=== PATIENT | male | born 1960 | race African-American/Black ===

== ENCOUNTER 2021-10-01 12:52 | Inpatient (IN) | payer MEDICAID, OTHER ==
[~2021-10-01] VITALS: Ht 160 cm; Wt 64.9 kg
[2021-10-01 20:00] VITALS: BP 155/101
[2021-10-01] MEDS ORDERED: DEXTROSE 50% WATER 50ML SYRINGE IV PRN (22:15)
[2021-10-01] MEDS: AMLODIPINE 10MG TABLET PO SCH (22:40)
[2021-10-02] VITALS (7 sets, daily range): BP systolic 127–156; BP diastolic 78–100
[2021-10-02 07:20] LABS: BASOPHILS % 0.3 % (0.0-2.0); HEMATOCRIT. 34.7 % (42.0-52.0); HEMOGLOBIN. 11.4 g/dL (14.0-18.0); LYMPHOCYTES % 20.9 % (20.0-50.0); MEAN CORPUSCULAR HEMOGLOBIN 28.4 pg (28.0-32.0); MEAN PLATELET VOLUME 10.7 fl (7.4-10.4); MONOCYTES % 7.1 % (2.0-8.0); NEUTROPHILS % 69.7 % (40.0-76.0); PLATELET 153 x1000/uL (130-400); RED BLOOD CELL COUNT 4.03 mill/uL (4.7-6.1); RED CELL DISTRIBUTION WIDTH 14.5 % (11.6-14.6)
[2021-10-02] MEDS ORDERED: BLOOD SUGAR DIAGNOSTIC STRIP TEST SCH (07:20)
[2021-10-02 07:28] LABS: CHLORIDE 111 mEq/L (98-107)
[2021-10-02] MEDS ORDERED: INSULIN LISPRO 100 UNITS/ML SUBCUT SCH (07:50)
[2021-10-02] MEDS: AMLODIPINE 10MG TABLET PO SCH (08:54)
[2021-10-02] MEDS ORDERED: IPRATROPIUM/ALBUTEROL 0.5-3(2.5)MG/3ML NEB HHN PRN (12:45)
[2021-10-03] VITALS: BP 158/95
[2021-10-03 04:00] VITALS: BP 126/75
[2021-10-03 08:00] VITALS: BP 128/79
[2021-10-03] MEDS: AMLODIPINE 10MG TABLET PO SCH (08:44)
[2021-10-03] MEDS: ACETAMINOPHEN 325MG TABLET PO PRN (10:25)
[2021-10-03 12:00] VITALS: BP 113/69
[2021-10-03 16:00] VITALS: BP 138/88
[2021-10-03 20:00] VITALS: BP 159/113
[2021-10-04] VITALS: BP 129/79
[2021-10-04 04:00] VITALS: BP 112/76
[2021-10-04 08:00] VITALS: BP 142/96
[2021-10-04] MEDS: AMLODIPINE 10MG TABLET PO SCH (08:45)
[2021-10-04 12:00] VITALS: BP 120/76
[2021-10-04 16:00] VITALS: BP 130/83
[2021-10-04 20:00] VITALS: BP 124/87
[2021-10-05] VITALS: BP 114/69
[2021-10-05 04:00] VITALS: BP 120/84
[2021-10-05 08:00] VITALS: BP 130/88
[2021-10-05] MEDS: AMLODIPINE 10MG TABLET PO SCH (08:33)
[2021-10-05 12:00] VITALS: BP 141/89
[2021-10-05 16:00] VITALS: BP 104/57
[2021-10-05 20:00] VITALS: BP 108/78
[2021-10-06] VITALS: BP 120/88
[2021-10-06 04:00] VITALS: BP 144/84
[2021-10-06 08:00] VITALS: BP 135/83
[2021-10-06] MEDS: AMLODIPINE 10MG TABLET PO SCH (10:42)
[2021-10-06] MEDS: ACETAMINOPHEN 325MG TABLET PO PRN ×2 (10:43→18:56)
[2021-10-06 12:00] VITALS: BP 132/75
[2021-10-06 16:00] VITALS: BP 121/81
[2021-10-06 19:02] LABS: CLARITY URINE CLOUDY (CLEAR); COLOR URINE YELLOW (YELLOW); KETONES URINE NEGATIVE (NEGATIVE); LEUKOCYTE ESTERASE URINE 3+ (NEGATIVE); NITRITE URINE NEGATIVE (NEGATIVE); OCCULT BLOOD URINE 1+ (NEGATIVE); PROTEIN URINE TRACE (NEGATIVE); UROBILINOGEN URINE 0.2 E.U./dL (0.2-1.0)
[2021-10-06 20:00] VITALS: BP 129/75
[2021-10-07] VITALS: BP 124/72
[2021-10-07 04:00] VITALS: BP 128/74
[2021-10-07 06:51] LABS: BASOPHILS % 0.2 % (0.0-2.0); EOSINOPHILS % 1.7 % (0.0-5.0); HEMATOCRIT. 34.2 % (42.0-52.0); HEMOGLOBIN. 11.5 g/dL (14.0-18.0); LYMPHOCYTES % 11.9 % (20.0-50.0); MEAN CORPUSCULAR HEMOGLOBIN 28.8 pg (28.0-32.0); MEAN CORPUSCULAR VOLUME 85.8 fL (80.0-94.0); MONOCYTES % 12.6 % (2.0-8.0); NEUTROPHILS % 73.6 % (40.0-76.0); PLATELET 180 x1000/uL (130-400); RED BLOOD CELL COUNT 3.98 mill/uL (4.7-6.1); RED CELL DISTRIBUTION WIDTH 14.4 % (11.6-14.6)
[2021-10-07 06:55] LABS: CHLORIDE 105 mEq/L (98-107)
[2021-10-07 08:00] VITALS: BP 120/76
[2021-10-07] MEDS: AMLODIPINE 10MG TABLET PO SCH (09:54)
[2021-10-07] MEDS ORDERED: CEFTRIAXONE 1 G PREMIX 50 ML IV SCH (15:45)
[2021-10-07] MEDS: TAMSULOSIN HCL 0.4MG SR CAPSULE PO SCH (16:25)
[2021-10-07] MEDS: ACETAMINOPHEN 325MG TABLET PO PRN (16:26)
[2021-10-07] MEDS: CEFTRIAXONE 1,000 MG in DEXTROSE 5% WATER 50 ML IV SCH (18:59)
[2021-10-07 20:00] VITALS: BP 137/72
[2021-10-08] VITALS: BP 128/64
[2021-10-08 04:00] VITALS: BP 128/66
[2021-10-08 07:23] LABS: BASOPHILS % 0.1 % (0.0-2.0); EOSINOPHILS % 1.1 % (0.0-5.0); HEMATOCRIT. 38.9 % (42.0-52.0); HEMOGLOBIN. 12.9 g/dL (14.0-18.0); LYMPHOCYTES % 17.2 % (20.0-50.0); MEAN CORPUSCULAR HEMOGLOBIN 28.3 pg (28.0-32.0); MEAN CORPUSCULAR VOLUME 85.3 fL (80.0-94.0); MEAN PLATELET VOLUME 10.4 fl (7.4-10.4); NEUTROPHILS % 67.6 % (40.0-76.0); PLATELET 233 x1000/uL (130-400); RED BLOOD CELL COUNT 4.57 mill/uL (4.7-6.1); RED CELL DISTRIBUTION WIDTH 14.4 % (11.6-14.6)
[2021-10-08 07:39] LABS: CHLORIDE 106 mEq/L (98-107)
[2021-10-08] MEDS: TAMSULOSIN HCL 0.4MG SR CAPSULE PO SCH (09:10)
[2021-10-08] MEDS: AMLODIPINE 10MG TABLET PO SCH (09:10)
[2021-10-08] MEDS: CEFTRIAXONE 1,000 MG in DEXTROSE 5% WATER 50 ML IV SCH (18:22)
[2021-10-08 20:00] VITALS: BP 125/72
[2021-10-09] VITALS: BP 131/74
[2021-10-09 04:00] VITALS: BP 117/73
[2021-10-09 08:00] VITALS: BP 124/85
[2021-10-09] MEDS: TAMSULOSIN HCL 0.4MG SR CAPSULE PO SCH (09:22)
[2021-10-09] MEDS: AMLODIPINE 10MG TABLET PO SCH (09:22)
[2021-10-09 10:01] LABS: BASOPHILS % 0.3 % (0.0-2.0); EOSINOPHILS % 2.8 % (0.0-5.0); HEMATOCRIT. 33.4 % (42.0-52.0); HEMOGLOBIN. 11.1 g/dL (14.0-18.0); LYMPHOCYTES % 19.4 % (20.0-50.0); MEAN CORPUSCULAR HEMOGLOBIN 28.4 pg (28.0-32.0); MEAN CORPUSCULAR VOLUME 85.5 fL (80.0-94.0); MEAN PLATELET VOLUME 10.2 fl (7.4-10.4); MONOCYTES % 13.4 % (2.0-8.0); NEUTROPHILS % 64.1 % (40.0-76.0); PLATELET 236 x1000/uL (130-400); RED CELL DISTRIBUTION WIDTH 14.3 % (11.6-14.6)
[2021-10-09 10:07] LABS: CHLORIDE 106 mEq/L (98-107)
[2021-10-09 12:00] VITALS: BP 133/87
[2021-10-09 16:00] VITALS: BP 121/82
[2021-10-09] MEDS: CEFTRIAXONE 1,000 MG in DEXTROSE 5% WATER 50 ML IV SCH (17:52)
[2021-10-09 20:00] VITALS: BP 121/78
[2021-10-10] VITALS: BP 102/62
[2021-10-10 04:00] VITALS: BP 118/65
[2021-10-10 08:02] VITALS: BP 144/89
[2021-10-10] MEDS: TAMSULOSIN HCL 0.4MG SR CAPSULE PO SCH (09:45)
[2021-10-10] MEDS: AMLODIPINE 10MG TABLET PO SCH (09:46)
[2021-10-10 12:00] VITALS: BP 115/76
[2021-10-10 16:00] VITALS: BP 147/92
[2021-10-10] MEDS: CEFTRIAXONE 1,000 MG in DEXTROSE 5% WATER 50 ML IV SCH (16:52)
[2021-10-10 20:00] VITALS: BP 121/85
[2021-10-11] VITALS: BP 123/86
[2021-10-11] MEDS: TAMSULOSIN HCL 0.4MG SR CAPSULE PO SCH (09:03)
[2021-10-11] MEDS: AMLODIPINE 10MG TABLET PO SCH (09:04)
[2021-10-11] MEDS ORDERED: TAMS-11 PO (12:36)
[2021-10-11] MEDS ORDERED: AMLO10TA80 PO (12:36)
[2021-10-11] MEDS ORDERED: CIPR-263 MT (12:36)
[2021-10-11] MEDS: CEFTRIAXONE 1,000 MG in DEXTROSE 5% WATER 50 ML IV SCH (18:15)
[2021-10-11 20:00] VITALS: BP 103/69
[2021-10-12] VITALS: BP 108/71
[2021-10-12 04:00] VITALS: BP 106/70
[2021-10-12 08:00] VITALS: BP 110/80
[2021-10-12] MEDS: TAMSULOSIN HCL 0.4MG SR CAPSULE PO SCH (08:24)
[2021-10-12] MEDS: AMLODIPINE 10MG TABLET PO SCH (08:25)
[2021-10-12 12:00] VITALS: BP 123/82
[2021-10-12 16:00] VITALS: BP 118/79
[2021-10-12 20:00] VITALS: BP 138/84
[2021-10-13] VITALS: BP 128/82
[2021-10-13 04:00] VITALS: BP 130/88
[2021-10-13 08:00] VITALS: BP 128/80
[2021-10-13] MEDS: AMLODIPINE 10MG TABLET PO SCH (08:44)
[2021-10-13] MEDS: TAMSULOSIN HCL 0.4MG SR CAPSULE PO SCH (08:45)
[2021-10-13 20:00] VITALS: BP 127/80
[2021-10-14 04:00] VITALS: BP 100/63
[2021-10-14 08:00] VITALS: BP 106/61
[2021-10-14] MEDS: AMLODIPINE 10MG TABLET PO SCH ×2 (09:00→09:06)
[2021-10-14] MEDS: TAMSULOSIN HCL 0.4MG SR CAPSULE PO SCH (09:06)
[2021-10-14 12:00] VITALS: BP 131/79
[2021-10-14 15:52] VITALS: BP 125/75
[2021-10-14 20:00] VITALS: BP 124/77
[2021-10-15 04:00] VITALS: BP 124/77
[2021-10-15 07:10] LABS: BASOPHILS % 0.3 % (0.0-2.0); EOSINOPHILS % 2.5 % (0.0-5.0); HEMATOCRIT. 32.9 % (42.0-52.0); HEMOGLOBIN. 11.1 g/dL (14.0-18.0); MEAN CORPUSCULAR HEMOGLOBIN 28.7 pg (28.0-32.0); MEAN CORPUSCULAR VOLUME 84.9 fL (80.0-94.0); MEAN PLATELET VOLUME 8.5 fl (7.4-10.4); MONOCYTES % 8.5 % (2.0-8.0); NEUTROPHILS % 69.7 % (40.0-76.0); PLATELET 341 x1000/uL (130-400); RED BLOOD CELL COUNT 3.87 mill/uL (4.7-6.1)
[2021-10-15 07:16] LABS: CHLORIDE 107 mEq/L (98-107)
[2021-10-15 08:00] VITALS: BP 124/87
[2021-10-15] MEDS: AMLODIPINE 10MG TABLET PO SCH (09:16)
[2021-10-15] MEDS: TAMSULOSIN HCL 0.4MG SR CAPSULE PO SCH (09:17)
[2021-10-15 12:00] VITALS: BP 108/76
[2021-10-15 20:00] VITALS: BP 118/81
[2021-10-16] VITALS: BP 104/66
[2021-10-16 04:00] VITALS: BP 112/65
[2021-10-16 08:00] VITALS: BP 123/83
[2021-10-16] MEDS: AMLODIPINE 10MG TABLET PO SCH (10:43)
[2021-10-16] MEDS: TAMSULOSIN HCL 0.4MG SR CAPSULE PO SCH (10:43)
[2021-10-16 16:00] VITALS: BP 133/74
[2021-10-16 20:00] VITALS: BP 131/93
[2021-10-17] VITALS: BP 123/78
[2021-10-17 04:00] VITALS: BP 100/59
[2021-10-17 08:00] VITALS: BP 116/85
[2021-10-17] MEDS: AMLODIPINE 10MG TABLET PO SCH (08:57)
[2021-10-17] MEDS: TAMSULOSIN HCL 0.4MG SR CAPSULE PO SCH (08:57)
[2021-10-17 12:00] VITALS: BP 123/89
[2021-10-17 16:00] VITALS: BP 114/81
[2021-10-18 05:21] VITALS: BP 108/70
[2021-10-18 08:00] VITALS: BP 132/82
[2021-10-18] MEDS: TAMSULOSIN HCL 0.4MG SR CAPSULE PO SCH (09:18)
[2021-10-18] MEDS: AMLODIPINE 10MG TABLET PO SCH (09:18)
[2021-10-18 12:00] VITALS: BP 111/70
[2021-10-18 16:00] VITALS: BP 100/71
[2021-10-18 20:00] VITALS: BP 125/79
[2021-10-19] VITALS: BP 98/60
[2021-10-19 04:00] VITALS: BP 113/75
[2021-10-19 08:00] VITALS: BP 100/70
[2021-10-19] MEDS: AMLODIPINE 10MG TABLET PO SCH (09:00)
[2021-10-19] MEDS: TAMSULOSIN HCL 0.4MG SR CAPSULE PO SCH (09:28)
[2021-10-19 12:00] VITALS: BP 117/76
[2021-10-19] MEDS: ACETAMINOPHEN 325MG TABLET PO PRN (13:26)
[2021-10-19 16:00] VITALS: BP 124/76
[2021-10-19 20:00] VITALS: BP 116/78
[2021-10-20] VITALS: BP 127/79
[2021-10-20 04:00] VITALS: BP 133/87
[2021-10-20 08:00] VITALS: BP 121/81
[2021-10-20] MEDS: TAMSULOSIN HCL 0.4MG SR CAPSULE PO SCH (08:53)
[2021-10-20] MEDS: AMLODIPINE 10MG TABLET PO SCH (08:54)
[2021-10-20 12:00] VITALS: BP 109/69
[2021-10-20 16:00] VITALS: BP 119/73
[2021-10-20 20:00] VITALS: BP 109/74
[2021-10-21] VITALS: BP 110/72
[2021-10-21 04:00] VITALS: BP 124/74
[2021-10-21 08:00] VITALS: BP 116/79
[2021-10-21] MEDS: AMLODIPINE 10MG TABLET PO SCH (08:32)
[2021-10-21] MEDS: TAMSULOSIN HCL 0.4MG SR CAPSULE PO SCH (08:32)
[2021-10-21 12:00] VITALS: BP 109/74
[2021-10-21 16:00] VITALS: BP 113/76
[2021-10-21 20:00] VITALS: BP 129/78
[2021-10-22] VITALS: BP 118/73
[2021-10-22 07:38] VITALS: BP 130/77
[2021-10-22] MEDS: AMLODIPINE 10MG TABLET PO SCH (09:01)
[2021-10-22] MEDS: TAMSULOSIN HCL 0.4MG SR CAPSULE PO SCH (09:02)
[2021-10-22 12:00] VITALS: BP 116/74
[2021-10-22 16:00] VITALS: BP 119/77
[2021-10-22 20:00] VITALS: BP 127/84
[2021-10-23] VITALS: BP 124/82
[2021-10-23 04:00] VITALS: BP 126/80
[2021-10-23 08:00] VITALS: BP 109/66
[2021-10-23] MEDS: AMLODIPINE 10MG TABLET PO SCH (08:29)
[2021-10-23] MEDS: TAMSULOSIN HCL 0.4MG SR CAPSULE PO SCH (08:34)
[2021-10-23 12:00] VITALS: BP 102/78
[2021-10-23 16:00] VITALS: BP 109/71
[2021-10-23 20:00] VITALS: BP 118/78
[2021-10-24] VITALS: BP 130/76
[2021-10-24 04:00] VITALS: BP 121/77
[2021-10-24 08:00] VITALS: BP 120/76
[2021-10-24] MEDS: AMLODIPINE 10MG TABLET PO SCH (08:36)
[2021-10-24] MEDS: TAMSULOSIN HCL 0.4MG SR CAPSULE PO SCH (08:36)
[2021-10-24 12:00] VITALS: BP 117/78
[2021-10-24 16:00] VITALS: BP 117/77
[2021-10-24 20:00] VITALS: BP 105/73
[2021-10-25] VITALS: BP 120/79
[2021-10-25 04:00] VITALS: BP 136/71
[2021-10-25 08:00] VITALS: BP 125/81
[2021-10-25] MEDS: AMLODIPINE 10MG TABLET PO SCH (09:57)
[2021-10-25] MEDS: TAMSULOSIN HCL 0.4MG SR CAPSULE PO SCH (09:57)
[2021-10-25 12:00] VITALS: BP 131/78
[2021-10-25 16:00] VITALS: BP 120/80
[2021-10-25 20:00] VITALS: BP 96/61
[2021-10-26] VITALS: BP 110/77
[2021-10-26 04:00] VITALS: BP 107/68
[2021-10-26 08:00] VITALS: BP 114/75
[2021-10-26] MEDS: TAMSULOSIN HCL 0.4MG SR CAPSULE PO SCH (08:37)
[2021-10-26] MEDS: AMLODIPINE 10MG TABLET PO SCH (08:38)
[2021-10-26 12:00] VITALS: BP 117/72
[2021-10-26 16:00] VITALS: BP 117/73
[2021-10-26 20:00] VITALS: BP 117/72
[2021-10-27] VITALS: BP 124/84
[2021-10-27 04:00] VITALS: BP 123/74
[2021-10-27 08:00] VITALS: BP 113/74
[2021-10-27] MEDS: TAMSULOSIN HCL 0.4MG SR CAPSULE PO SCH (09:03)
[2021-10-27] MEDS: AMLODIPINE 10MG TABLET PO SCH (09:03)
[2021-10-27 16:00] VITALS: BP 122/78
[2021-10-27 20:00] VITALS: BP 124/77
[2021-10-28] VITALS: BP 102/70
[2021-10-28 04:00] VITALS: BP 124/88
[2021-10-28 08:00] VITALS: BP 132/86
[2021-10-28] MEDS: TAMSULOSIN HCL 0.4MG SR CAPSULE PO SCH (08:26)
[2021-10-28] MEDS: AMLODIPINE 10MG TABLET PO SCH (08:27)
[2021-10-28 12:00] VITALS: BP 106/63
[2021-10-28 16:00] VITALS: BP 116/71
[2021-10-28 20:00] VITALS: BP 136/87
[2021-10-29] VITALS: BP 112/66
[2021-10-29 08:00] VITALS: BP 114/57
[2021-10-29] MEDS: AMLODIPINE 10MG TABLET PO SCH (08:38)
[2021-10-29] MEDS: TAMSULOSIN HCL 0.4MG SR CAPSULE PO SCH (08:38)
[2021-10-29 12:00] VITALS: BP 116/74
[2021-10-29 16:00] VITALS: BP 113/76
[2021-10-30 08:03] VITALS: BP 145/90
[2021-10-30] MEDS: TAMSULOSIN HCL 0.4MG SR CAPSULE PO SCH (08:49)
[2021-10-30] MEDS: ACETAMINOPHEN 325MG TABLET PO PRN (10:45)
[2021-10-30 12:00] VITALS: BP 100/61
[2021-10-30 20:00] VITALS: BP 114/62
[2021-10-31] VITALS: BP 122/66
[2021-10-31 04:00] VITALS: BP 116/68
[2021-10-31 08:00] VITALS: BP 124/85
[2021-10-31] MEDS: TAMSULOSIN HCL 0.4MG SR CAPSULE PO SCH (09:11)
[2021-10-31] MEDS: AMLODIPINE 10MG TABLET PO SCH (09:12)
[2021-10-31 12:00] VITALS: BP 112/74
[2021-10-31 16:00] VITALS: BP 121/74
[2021-10-31 20:00] VITALS: BP 125/75
[2021-11-01] VITALS: BP 144/74
[2021-11-01 04:45] VITALS: BP 119/83
[2021-11-01 08:00] VITALS: BP 130/85
[2021-11-01] MEDS: AMLODIPINE 10MG TABLET PO SCH (10:44)
[2021-11-01] MEDS: TAMSULOSIN HCL 0.4MG SR CAPSULE PO SCH (10:45)
[2021-11-01 12:00] VITALS: BP 126/80
[2021-11-01 16:00] VITALS: BP 118/78
[2021-11-01 20:00] VITALS: BP 122/79
[2021-11-02 04:00] VITALS: BP 111/73
[2021-11-02 08:00] VITALS: BP 125/85
[2021-11-02] MEDS: TAMSULOSIN HCL 0.4MG SR CAPSULE PO SCH (09:40)
[2021-11-02] MEDS: AMLODIPINE 10MG TABLET PO SCH (09:40)
[2021-11-02 12:00] VITALS: BP 113/76
[2021-11-02 16:00] VITALS: BP 149/93
[2021-11-02 20:00] VITALS: BP 114/81
[2021-11-03 03:33] LABS: CLARITY URINE CLOUDY (CLEAR); COLOR URINE YELLOW (YELLOW); KETONES URINE NEGATIVE (NEGATIVE); LEUKOCYTE ESTERASE URINE 3+ (NEGATIVE); NITRITE URINE POSITIVE (NEGATIVE); OCCULT BLOOD URINE TRACE (NEGATIVE); PH URINE 7.5 (4.5-8.0); PROTEIN URINE NEGATIVE (NEGATIVE); SPECIFIC GRAVITY URINE 1.012 (1.005-1.030)
[2021-11-03 04:00] VITALS: BP 142/88
[2021-11-03 08:00] VITALS: BP 110/78
[2021-11-03] MEDS: AMLODIPINE 10MG TABLET PO SCH (08:50)
[2021-11-03] MEDS: TAMSULOSIN HCL 0.4MG SR CAPSULE PO SCH (08:50)
[2021-11-03 12:00] VITALS: BP 132/82
[2021-11-03 16:00] VITALS: BP 113/70
[2021-11-03 20:00] VITALS: BP 124/81
[2021-11-04] VITALS: BP 130/82
[2021-11-04 04:00] VITALS: BP 128/81
[2021-11-04 08:00] VITALS: BP 124/85
[2021-11-04] MEDS: AMLODIPINE 10MG TABLET PO SCH (09:43)
[2021-11-04] MEDS: TAMSULOSIN HCL 0.4MG SR CAPSULE PO SCH (09:44)
[2021-11-04 12:00] VITALS: BP 112/76
[2021-11-04 16:00] VITALS: BP 123/82
[2021-11-04] MEDS ORDERED: CEFTRIAXONE 1 G PREMIX 50 ML IV SCH (18:30)
[2021-11-04 20:00] VITALS: BP 115/76
[2021-11-04] MEDS: CEFTRIAXONE 1,000 MG in DEXTROSE 5% WATER 50 ML IV SCH (20:35)
[2021-11-05] VITALS: BP 126/73
[2021-11-05 04:00] VITALS: BP 120/70
[2021-11-05 08:00] VITALS: BP 124/86
[2021-11-05] MEDS: AMLODIPINE 10MG TABLET PO SCH (10:27)
[2021-11-05 12:00] VITALS: BP 132/88
[2021-11-05 16:00] VITALS: BP 136/84
[2021-11-05 20:00] VITALS: BP 118/66
[2021-11-05] MEDS: CEFTRIAXONE 1,000 MG in DEXTROSE 5% WATER 50 ML IV SCH (20:41)
[2021-11-06] VITALS: BP 124/78
[2021-11-06 04:00] VITALS: BP 158/86
[2021-11-06 08:00] VITALS: BP 118/78
[2021-11-06] MEDS: AMLODIPINE 10MG TABLET PO SCH (09:20)
[2021-11-06 12:00] VITALS: BP 117/76
[2021-11-06 16:00] VITALS: BP 115/76
[2021-11-06 20:00] VITALS: BP 109/73
[2021-11-06] MEDS: CEFTRIAXONE 1,000 MG in DEXTROSE 5% WATER 50 ML IV SCH (20:00)
[2021-11-07] VITALS: BP 114/78
[2021-11-07 04:00] VITALS: BP 126/82
[2021-11-07 08:00] VITALS: BP 126/94
[2021-11-07] MEDS: AMLODIPINE 10MG TABLET PO SCH (09:04)
[2021-11-07 12:00] VITALS: BP 122/74
[2021-11-07 16:00] VITALS: BP 128/79
[2021-11-07 20:00] VITALS: BP 113/62
[2021-11-07] MEDS: CEFTRIAXONE 1,000 MG in DEXTROSE 5% WATER 50 ML IV SCH (20:15)
[2021-11-08] VITALS: BP 122/82
[2021-11-08 04:00] VITALS: BP 109/87
[2021-11-08 08:00] VITALS: BP 110/74
[2021-11-08] MEDS: AMLODIPINE 10MG TABLET PO SCH (09:02)
[2021-11-08 12:00] VITALS: BP 141/60
[2021-11-08 16:00] VITALS: BP 143/63
[2021-11-08 20:00] VITALS: BP 112/75
[2021-11-08] MEDS: CEFTRIAXONE 1,000 MG in DEXTROSE 5% WATER 50 ML IV SCH (21:15)
[2021-11-09] VITALS: BP 130/81
[2021-11-09 04:00] VITALS: BP 116/76
[2021-11-09 08:00] VITALS: BP 123/86
[2021-11-09] MEDS: AMLODIPINE 10MG TABLET PO SCH (09:19)
[2021-11-09 12:01] VITALS: BP 115/75
[2021-11-09 16:00] VITALS: BP 115/72
[2021-11-09] MEDS: CEFTRIAXONE 1,000 MG in DEXTROSE 5% WATER 50 ML IV SCH (19:59)
[2021-11-09 20:00] VITALS: BP 121/76
[2021-11-10] VITALS: BP 116/77
[2021-11-10 04:00] VITALS: BP 125/66
[2021-11-10 08:00] VITALS: BP 118/83
[2021-11-10] MEDS: AMLODIPINE 10MG TABLET PO SCH (09:27)
[2021-11-10 12:00] VITALS: BP 120/78
[2021-11-10 16:00] VITALS: BP 132/72
[2021-11-10 20:00] VITALS: BP 117/74
[2021-11-11] VITALS: BP 118/89
[2021-11-11 04:00] VITALS: BP 121/78
[2021-11-11 08:00] VITALS: BP 115/74
[2021-11-11] MEDS: AMLODIPINE 10MG TABLET PO SCH (08:38)
[2021-11-11 10:44] VITALS: BP 115/74
== END 2021-11-11 11:19 | DRG 720 ==
LOC: ER 12:52 → 6EST 16:21 → EDBEDREQ 16:31 → EDBEDREQTM 16:31 → ENRESERV 20:02 → 6EST 10-05 22:16
PROVIDERS: ADMIT Internal Medicine; ATTEND Internal Medicine
PROC: 0T9B70Z Drainage of Bladder with Drainage Device, Via Natural or Artificial Opening (ICD-10-PCS; principal; 2021-10-07)
DX: A41.51 Sepsis due to Escherichia coli [E. coli] (principal); R62.7 Adult failure to thrive; H54.8 Legal blindness, as defined in USA; I10 Essential (primary) hypertension; N39.0 Urinary tract infection, site not specified; N40.0 Benign prostatic hyperplasia without lower urinary tract symptoms; R19.7 Diarrhea, unspecified; Z79.899 Other long term (current) drug therapy; J44.9 Chronic obstructive pulmonary disease, unspecified; Z20.822 Contact with and (suspected) exposure to COVID-19; Z68.25 Body mass index [BMI] 25.0-25.9, adult; R33.9 Retention of urine, unspecified
CPT/HCPCS: 36415; 76770; 80048; 80053; 81003; 82962; 83036; 84153; 85025; 87015; 87045; 87077; 87186; 87426; 87427; 87449; 89055; 93970; 97162; 99285; J0696; J7060; A4315; G0103